=== PATIENT | female | born 1995 ===

== ENCOUNTER 2017-07-24 18:18 | Emergency (ER) | payer SELFPAY ==
--- NOTE | 2017-07-24 18:42 | ED PDOC ---
Arrival/HPI - General Time Seen by Provider: 07/24/17 18:33 Historian: Patient - History of Present Illness Narrative History of Present Illness (Text): 07/24/17 18:40 22 year old female, no pmh, nkda, , LMP 03/30/2017, who presents to the emergency department complaining of epigastric pain/nausea/vomiting/couple episodes of diarrhea while being 12 weeks . Patient reports having epigastric pain from vomiting associated with nausea 1-2 episodes of diarrhea, and low back pain s/p eating a burger. Patient denies any abdominal trauma or pelvic pain. Patient denies vaginal bleeding/discharge, no fever or chills, no recent use of antibiotics or recent travels. Time/Duration: Prior to Arrival Symptom Onset: Sudden Symptom Course: Unchanged Activities at Onset: Eating Past Medical History - Provider Review Nursing Documentation Reviewed: Yes Family/Social History - Physician Review Nursing Documentation Reviewed: Yes Family/Social History: Unknown Family HX Allergies/Home Meds Allergies/Adverse Reactions: Allergies No Known Allergies Allergy (Verified 07/24/17 18:42) Review of Systems - Review of Systems Constitutional: absent: Fevers Respiratory: absent: SOB Cardiovascular: absent: Chest Pain Gastrointestinal: Abdominal Pain (epigastric), Diarrhea, Nausea, Vomiting. absent: Hematochezia Genitourinary Female: absent: Dysuria, Vaginal Bleeding, Vaginal Discharge Musculoskeletal: Back Pain (lower back pain). absent: Arthralgias, Neck Pain, Myalgias Skin: absent: Rash, Pruritis Neurological: absent: Headache Endocrine: absent: Diaphoresis Hemo/Lymphatic: absent: Adenopathy Physical Exam Vital Signs Reviewed: Yes Vital Signs Temp Pulse Resp BP Pulse Ox 07/24/17 18:42 97.6 F 95 H 17 125/89 99 Temperature: Afebrile Blood Pressure: Normal Pulse: Tachycardic Respiratory Rate: Normal Appearance: Positive for: Well-Appearing, Non-Toxic, Comfortable Pain Distress: Mild (0) Mental Status: Positive for: Alert and Oriented X 3 - Systems Exam Head: Present: Atraumatic, Normocephalic Pupils: Present: PERRL Extroacular Muscles: Present: EOMI Conjunctiva: Present: Normal Mouth: Present: Moist Mucous Membranes Respiratory/Chest: Present: Clear to Auscultation, Good Air Exchange. No: Respiratory Distress, Accessory Muscle Use, Wheezes, Rales, Retracting, Rhonchi , Tachypneic Cardiovascular: Present: Regular Rate and Rhythm, Normal S1, S2. No: Murmurs Abdomen: Present: Tenderness (epigastric tenderness, negative jessica signs, no cva tenderness). No: Distention, Peritoneal Signs, Rebound, Guarding Genitourinary/Pelvic Exam: Present: Other (Pt. declined) Back: No: CVA Tenderness, Midline Tenderness, Paraspinal Tenderness, Pain with Leg Raise Neurological: Present: GCS=15, Speech Normal, Motor Func Grossly Intact, Gait Normal, Memory Normal Skin: Present: Warm, Dry, Normal Color. No: Rashes Psychiatric: Present: Alert, Oriented x 3, Normal Insight, Normal Concentration Medical Decision Making ED Course and Treatment: 07/24/17 Impression: 22 year old female with epigastric tenderness complaining of epigastric pain associated with nausea, vomiting, diarrhea and lower back pain. Plan: -- Transvaginal ultrasound -- Labs/type and screen/stool and c.diff cultures -- Pepcid, Benadryl, and Sodium Chloride IVF -- Urinalysis -- Reassess and disposition Progress Notes: 07/24/17 21:03 -Transvaginal sonogram Single intrauterine . Cervix is closed measuring approximately 2 cm. Placenta is fundal in location. Fetus is currently breech in the presentation. heart rate is measured at 139 bpm. BPD 4.1 mm, HC 15.3 mm, AC 14 mm, FL 2.9 mm. Estimated gestational age based on measurements is 18 weeks 5 days +/- 1 week 2 days. -Labs show no acute findings except potassium 3.0 (potassium chloride 40meq po as per Dr. Edouard), no elevation of wbc, hgb 11.2 -UA show +UTI and yeast? but she's asymptomatic with no vaginal itching, advised the patient to repeat the UA in 2 days for repeat UA. -Lipase is negative. -Blood type is O+ -Beta HCG 69990 -Pt. feels Discharge home with macrobid, dicleegis, pepcid, eat more banana, repeat the urinalysis and follow up with your own pmd and obgyn in 2 days, return to the ER for any new or worsening signs or symptoms. - Lab Interpretations Lab Results: 07/24/17 18:56 07/24/17 18:56 Lab Results 07/24/17 19:02: Blood Type O POSITIVE, Antibody Screen Negative, BBK History Checked No verified bt 07/24/17 18:56: WBC 6.5, RBC 3.75, Hgb 11.2 L, Hct 32.2 L, MCV 85.9, MCH 29.9, MCHC 34.8, RDW 12.5, Plt Count 180, MPV 11.2 H, Gran % 64.8, Lymph % (Auto) 24.5 , Lassen % (Auto) 9.4 H, Eos % (Auto) 1.1 L, Baso % (Auto) 0.2, Gran # 4.22, Lymph # (Auto) 1.6, Lassen # (Auto) 0.6, Eos # (Auto) 0.1, Baso # (Auto) 0.01 07/24/17 18:56: Beta HCG, Quant 74392.00 H 07/24/17 18:56: Sodium 141, Potassium 3.0 L, Chloride 103, Carbon Dioxide 26, Anion Gap 15, BUN 8, Creatinine 0.5 L, Est GFR ( Amer) > 60, Est GFR (Non -Af Amer) > 60, Random Glucose 79, Calcium 9.7, Total Bilirubin 0.4, AST 21, ALT 33, Alkaline Phosphatase 56, Total Protein 6.7, Albumin 3.7, Globulin 3.0, Albumin/Globulin Ratio 1.2, Lipase 131 07/24/17 18:56: Urine Color Yellow, Urine Appearance Clear, Urine pH 6.5, Ur Specific Widen 1.025, Urine Protein Trace H, Urine Glucose (UA) Negative, Urine Ketones 15 H, Urine Blood Negative, Urine Nitrate Negative, Urine Bilirubin Negative, Urine Urobilinogen 2.0 H, Ur Leukocyte Esterase Trace H, Urine RBC 0 - 2, Urine WBC 2 - 5, Ur Epithelial Cells Many, Amorphous Sediment Moderate, Urine Bacteria Many, Urine Other Uyeast I have reviewed the lab results: Yes - RAD Interpretation Radiology Orders: 07/24/17 18:55 AGE [US] Stat Uterus/cervix: Single intrauterine . Cervix is closed measuring approximately 2 cm. Placenta is fundal in location. Fetus is currently breech in the presentation. heart rate is measured at 139 bpm. BPD 4.1 mm, HC 15.3 mm, AC 14 mm, FL 2.9 mm. Estimated gestational age based on measurements is 18 weeks 5 days +/- 1 week 2 days. Ovaries: Not visualized. Free fluid: No free fluid. IMPRESSION: Limited study of single live IUP as above. Thank you for allowing us to participate in the care of your patient. Dictated and Authenticated by: Emma Barraza MD 07/24/2017 8:36 PM Eastern Time ([place] & [place]) Audio/Visual Operator: Radiologist - Medication Orders Current Medication Orders: Potassium Chloride (K-Dur 20 Meq Er Tab) 40 meq PO STAT STA Stop: 07/24/17 21:04 Discontinued Medications Diphenhydramine HCl (Benadryl) 25 mg IVP STAT STA Stop: 07/24/17 18:57 Last Admin: 07/24/17 20:17 Dose: 25 mg IVP Administration Document 07/24/17 20:17 EQ (Rec: 07/24/17 20:17 EQ [id number]) Charges for Administration # of IVP Administrations 1 Famotidine (Pepcid) 20 mg IVP STAT STA Stop: 07/24/17 18:56 Last Admin: 07/24/17 20:17 Dose: 20 mg IVP Administration Document 07/24/17 20:17 EQ (Rec: 07/24/17 20:17 EQ [id number]) Charges for Administration # of IVP Administrations 1 Sodium Chloride (Sodium Chloride 0.9%) 1,000 mls @ 999 mls/hr IV .Q1H1M STA Stop: 07/24/17 19:55 Last Admin: 07/24/17 19:03 Dose: 999 mls/hr eMAR Start Stop Document 07/24/17 19:03 GMD (Rec: 07/24/17 19:03 GMD [id number]) Intravenous Solution Start Date 07/24/17 Start Time 19:03 End Date 07/24/17 End time 20:04 Total Infusion Time 61 Nitrofurantoin Macrocrystals (Macrobid) 100 mg PO STAT STA PRN Reason: Protocol Stop: 07/24/17 20:00 Last Admin: 07/24/17 20:16 Dose: 100 mg - PA / UPHOLSTERY TECHNICIAN / Resident Statement /DO has reviewed & agrees with the documentation as recorded. - Scribe Statement The provider has reviewed the documentation as recorded by the Ednae Sarah Galicia Provider Scribe Attestation: All medical record entries made by the Luis Aibe were at my direction and personally dictated by me. I have reviewed the chart and agree that the record accurately reflects my personal performance of the history, physical exam, medical decision making, and the department course for this patient. I have also personally directed, reviewed, and agree with the discharge instructions and disposition. Disposition/Present on Arrival - Present on Arrival Any Indicators Present on Arrival: No History of DVT/PE: No History of Uncontrolled Diabetes: No Urinary Catheter: No History of Decub. Ulcer: No - Disposition Have Diagnosis and Disposition been Completed?: Yes Diagnosis: UTI (urinary tract infection), Nausea & vomiting, Disposition: HOME/ ROUTINE Disposition Time: 20:23 Patient Plan: Discharge Patient Problems: Current Active Problems Problem Status Onset Nausea & vomiting Acute Acute UTI (urinary tract infection) Acute Condition: IMPROVED Additional Instructions: Discharge home with macrobid, dicleegis, pepcid, eat more banana, repeat the urinalysis and follow up with your own pmd and obgyn in 2 days, return to the ER for any new or worsening signs or symptoms. Prescriptions: Doxylamine/Pyridoxine HCl (B6) [Diclegis 10 mg-10 mg] 2 tab PO QPM PRN #20 tab PRN Reason: Other Famotidine [Pepcid] 20 mg PO BID PRN #20 tab PRN Reason: Other Nitrofurantoin Macrocrystals [Macrobid] 100 mg PO BID #14 cap Referrals: Jojo Kelley MD [Staff Provider] - Follow up with primary [facility] [Outside] - Follow up with primary Forms: WORK NOTE
[2017-07-24 18:43] VITALS: TEMP 97.6; BMI 27.3
[2017-07-24] MEDS ORDERED: Sodium Chloride 0.9% 1,000 ML IV STA (18:55)
[2017-07-24] MEDS ORDERED: DiphenhydrAMINE 50 mg/ml Inj IVP STA (18:56)
[2017-07-24 19:32] LABS: ALB/GLOB RATIO 1.2 (1.1-1.8); ALBUMIN 3.7 g/dL (3.0-4.8); ALT/SGPT 33 U/L (7-56); AST/SGOT 21 U/L (14-36); BLOOD UREA NITROGEN 8 mg/dL (7-21); CALCIUM 9.7 mg/dL (8.4-10.5); GFR AFRICAN-AMERICAN > 60; GFR NON-AFRICAN AMERICAN > 60; LIPASE 131 U/L (23-300)
[2017-07-24 19:49] LABS: BASO # 0.01 K/mm3 (0.0-2.0); BASO % 0.2 % (0.0-3.0); EOS # 0.1 (0.0-0.7); EOS % 1.1 % (1.5-5.0); GRAN # 4.22 (1.4-6.5); GRAN % 64.8 % (50.0-68.0); HEMOGLOBIN 11.2 g/dL (12.0-16.0); LYMPH # 1.6 (1.2-3.4); LYMPH % 24.5 % (22.0-35.0); MEAN CELL VOLUME 85.9 fl (80.0-105.0); MEAN CORPUSCULAR HEMOGLOBIN 29.9 pg (25.0-35.0); MEAN CORPUSCULAR HGB CONC 34.8 g/dl (31.0-37.0); MEAN PLATELET VOLUME 11.2 fl (7.0-11.0); MONO # 0.6 (0.1-0.6); MONO % 9.4 % (1.0-6.0); RBC 3.75 10^6/uL (3.5-6.1); RED CELL DISTRIBUTION WIDTH 12.5 % (11.5-14.5); WHITE BLOOD COUNT 6.5 10^3/ul (4.5-11.0)
[2017-07-24 19:50] LABS: PH,URINE 6.5 (4.7-8.0); URINE BILIRUBIN NEGATIVE (NEGATIVE); URINE BLOOD NEGATIVE (NEGATIVE); URINE GLUCOSE (UA) NEGATIVE (NEGATIVE); URINE LEUKOCYTE ESTERASE TRACE Leu/uL (NEGATIVE); URINE PROTEIN TRACE mg/dL (<30 mg/dL)
[2017-07-24 19:58] LABS: URINE APPEARANCE CLEAR (CLEAR); URINE COLOR YELLOW (YELLOW)
[2017-07-24 20:08] LABS: URINE AMORPHOUS SEDIMENT MODERATE; URINE BACTERIA MANY (NEG); URINE EPITHELIAL CELLS MANY /hpf (0-5); URINE RBC 0 - 2 /hpf (0-2)
--- NOTE | 2017-07-24 20:36 | US ---
EXAM: US Pelvis Complete, Transabdominal CLINICAL HISTORY: 22 years old, female; Pain; Other: Pain/spotting; Gestational age or lmp: 03/30/17; ; Additional info: Medical clearance TECHNIQUE: Real-time transabdominal pelvic ultrasound (complete) with image documentation. COMPARISON: No relevant prior studies available. FINDINGS: Uterus/cervix: Single intrauterine . Cervix is closed measuring approximately 2 cm. Placenta is fundal in location. Fetus is currently breech in the presentation. heart rate is measured at 139 bpm. BPD 4.1 mm, HC 15.3 mm, AC 14 mm, FL 2.9 mm. Estimated gestational age based on measurements is 18 weeks 5 days +/- 1 week 2 days. Ovaries: Not visualized. Free fluid: No free fluid. IMPRESSION: Limited study of single live IUP as above.
[2017-07-24] MEDS ORDERED: Potassium Chloride 20 mEq ER Tab PO STA (21:03)
[2017-07-24 21:26] VITALS: BP 125/82; PULSE 88; RESP 18; O2SAT 100
== END 2017-07-24 21:29 | disposition home or self-care (01) ==
LOC: ED 18:18 → MERGE 18:18 → ED 21:29
DX: O23.42 Unspecified infection of urinary tract in pregnancy, second trimester (principal); O21.9 Vomiting of pregnancy, unspecified; Z3A.18 18 weeks gestation of pregnancy
CPT/HCPCS: 76815; 80053; 81001; 83690; 84702; 85025; 86850; 86900; 87086; 96361; 96374; 96375; 99284; J1200; J7040